=== PATIENT | male | born 1960 | race Two or more races ===

== ENCOUNTER 2024-02-09 16:00 | Emergency (ER) | payer OTHER ==
[~2024-02-09] VITALS: Ht 170.2 cm; Wt 115.3 kg
[2024-02-09 20:16] VITALS: BP 127/73; PULSE 78; RESP 18; TEMP 98; O2SAT 99
== END 2024-02-09 20:17 | disposition home or self-care (01) ==
LOC: ER 16:00
DX: S01.01XA Laceration without foreign body of scalp, initial encounter (principal); E11.9 Type 2 diabetes mellitus without complications; E78.5 Hyperlipidemia, unspecified; F12.10 Cannabis abuse, uncomplicated; W18.09XA Striking against other object with subsequent fall, initial encounter; Y93.01 Activity, walking, marching and hiking; Y92.89 Other specified places as the place of occurrence of the external cause; Y99.8 Other external cause status
CPT/HCPCS: 12002; 70450; 72125